=== PATIENT | female | born 1990 | race American Indian/Alaskan Native ===

== ENCOUNTER 2019-10-27 03:54 | Observation (INO) | payer MEDICAID ==
[2019-10-27 04:18] LABS: Hematocrit 43.6 % (30.3-42.9); Hemoglobin 14.2 gm/dl (10.1-14.3); Mean Corpuscular HGB Conc 33 % (30-34); Mean Corpuscular Volume 88 fl (79-97); Platelet Count 308 K/mm3 (140-440); Red Blood Count 4.95 M/mm3 (3.65-5.03); Red Cell Distribution Width 15.8 % (13.2-15.2)
[2019-10-27 04:40] LABS: Alanine Aminotransferase 20 units/L (7-56); Albumin 4.2 g/dL (3.9-5); BUN/Creatinine Ratio 20; Blood Urea Nitrogen 12 mg/dL (7-17); Calcium 9.6 mg/dL (8.4-10.2); Hemolysis Index 47
[2019-10-27] MEDS ORDERED: ONDANSETRON 4 MG/2 ML INJ IV ONE ×2 (05:31→06:40)
[2019-10-27] MEDS ORDERED: FAMOTIDINE 20 MG/2 ML INJ IV ONE (05:31)
[2019-10-27] MEDS ORDERED: SODIUM CHLORIDE 0.9% 1000 ML 1,000 ML IV ONE (05:31)
[2019-10-27] MEDS ORDERED: MORPHINE 4 MG/1 ML INJ IV ONE (05:31)
--- NOTE | 2019-10-27 05:37 | Emergency Department Report ---
ED Abdominal Pain HPI - General Chief Complaint: Abdominal Pain Stated Complaint: ABDOMINAL PAIN Source: patient Mode of arrival: Ambulatory Limitations: No Limitations - History of Present Illness Initial Comments: Patient is a 29-year-old -Finnish female with no past medical history presents to the ED with acute onset persistent severe diffuse abdominal pain with nausea and vomiting for the last 2 days. Patient states that she has not been able to keep anything down in the last 12 hours. Patient describes the pain as crampy sharp and persistent since onset. Patient states that no one else at home has had similar symptoms. Patient denies fever, chills, diarrhea, dizziness, syncope, cough, chest pain, sore throat, dysuria, urinary frequency and urgency, vaginal bleeding, vaginal discharge, chest pain or shortness of breath. MD Complaint: abdominal pain, other (Nausea and vomiting) -: Sudden, days(s) (2) Location: diffuse Radiation: none Migration to: no migration Severity: severe Quality: cramping, sharp Consistency: constant Improves With: nothing Worsens With: nothing Associated Symptoms: denies other symptoms, nausea, vomiting, anorexia. denies: diarrhea, fever, chills, constipation, dysuria, hematemesis, hematochezia, melena, hematuria, syncope - Related Data LMP Date: 10/18/19 Allergies Allergy/AdvReac Type Severity Reaction Status Date / Time shellfish derived Allergy Anaphylaxis Verified 10/27/19 03:56 ED Review of Systems ROS: Stated complaint: ABDOMINAL PAIN Other details as noted in HPI Constitutional: denies: chills, fever Eyes: denies: eye pain, eye discharge, vision change ENT: denies: ear pain, throat pain Respiratory: denies: cough, shortness of breath, wheezing Cardiovascular: denies: chest pain, palpitations Endocrine: no symptoms reported Gastrointestinal: abdominal pain, nausea, vomiting. denies: diarrhea Genitourinary: denies: urgency, dysuria, discharge Musculoskeletal: denies: back pain, joint swelling, arthralgia Skin: denies: rash, lesions Neurological: denies: headache, weakness, paresthesias Psychiatric: denies: anxiety, depression Hematological/Lymphatic: denies: easy bleeding, easy bruising ED Past Medical Hx - Past Medical History Previous Medical History?: No - Surgical History Past Surgical History?: No - Social History Smoking Status: Never Smoker Substance Use Type: None ED Physical Exam - General Limitations: No Limitations General appearance: alert, in no apparent distress - Head Head exam: Present: atraumatic, normocephalic, normal inspection - Eye Eye exam: Present: normal appearance, PERRL, EOMI Pupils: Present: normal accommodation - ENT ENT exam: Present: normal exam, normal orophraynx, mucous membranes moist, TM's normal bilaterally, normal external ear exam - Neck Neck exam: Present: normal inspection, full ROM. Absent: tenderness, lymphadenopathy - Respiratory Respiratory exam: Present: normal lung sounds bilaterally. Absent: respiratory distress, wheezes, rhonchi, chest wall tenderness, accessory muscle use, decreased breath sounds, prolonged expiratory - Cardiovascular Cardiovascular Exam: Present: regular rate, normal rhythm, normal heart sounds. Absent: systolic murmur, diastolic murmur, rubs, gallop - GI/Abdominal GI/Abdominal exam: Present: soft, tenderness (Palpable diffuse abdominal tenderness with guarding), guarding, normal bowel sounds. Absent: rebound, hyperactive bowel sounds, hypoactive bowel sounds, organomegaly - Extremities Exam Extremities exam: Present: normal inspection, full ROM, normal capillary refill - Back Exam Back exam: Present: normal inspection, full ROM. Absent: tenderness, CVA tenderness (R), muscle spasm, paraspinal tenderness, vertebral tenderness - Neurological Exam Neurological exam: Present: alert, oriented X3, CN II-XII intact, normal gait, reflexes normal - Psychiatric Psychiatric exam: Present: normal affect, normal mood - Skin Skin exam: Present: warm, dry, intact, normal color. Absent: rash ED Course Vital Signs 10/27/19 10/27/19 03:56 06:07 Temperature 98.3 F Pulse Rate 77 Respiratory 18 18 Rate Blood Pressure 110/82 O2 Sat by Pulse 99 Oximetry ED Medical Decision Making - Lab Data Result diagrams: 10/27/19 04:07 10/27/19 04:07 - Radiology Data Radiology results: report reviewed, image reviewed Findings [facility] [address] [place] [address] Cat Scan Report Signed Patient: CHERRY OSORIO MR#: [id number] : 1990 Acct:[id number] Age/Sex: 29 / F ADM Date: 10/27/19 Loc: ED Attending Dr: Ordering Physician: NINFA BRADSHAW Date of Service: 10/27/19 Procedure(s): CT abdomen pelvis wo con Accession Number(s): [id number] cc: NINFA BRADSHAW CT ABDOMEN AND PELVIS WITHOUT CONTRAST HISTORY: MAIN: abdominal pain, Pt Sts. x 5 years ago, abd pain x 3 days. COMPARISON: None. TECHNIQUE: CT images of the abdomen and pelvis were obtained without administration of intravenous contrast. All CT scans at this location are performed using CT dose reduction for ALARA by means of automated exposure control. FINDINGS: Lungs/bones: Lung bases are clear. No acute osseous abnormality identified. There is bony sclerosis of the SI joints bilaterally suggesting sacroiliitis with a small amount of erosive martinez e. Abdomen/pelvis: The appendix is abnormally dilated and fluid-filled, retrocecal in location. No free air or abscess to suggest perforation. There is also fatty infiltration within the wall the colon nearly along the entire colon but most prominent in the proximal colon and terminal ileum. The liver, spleen, pancreas, adrenals, kidneys, and proximal GI tract appear unremarkable. Urinary bladder is mostly collapsed. Uterus is surgically absent. No pelvic free fluid. IMPRESSION: 1. Acute uncomplicated appendicitis. 2. Fatty infiltration of the wall the colon and terminal ileum as well as findings of chronic sacroiliitis can be seen with chronic inflammatory bowel disease. Signer Name: Nolberto Reza MD Signed: 10/27/2019 6:18 AM Workstation Name: [id number] Transcribed By: JW Dictated By: Nolberto Reza MD Electronically Authenticated By: Nolberto Reza MD Signed Date/Time: 10/27/19617 DD/ 4 TD/TT: - Medical Decision Making This is a 29-year-old -Finnish female with no past medical history presents to the ED with acute onset persistent severe diffuse abdominal pain with nausea and vomiting for the last 2 days. Patient states that she has not been able to keep anything down in the last 12 hours. Patient describes the pain as crampy sharp and persistent since onset. Patient states that no one else at home has had similar symptoms. In the ED, patient is alert and oriented x3 and is not in distress but appears to be in pain. Lab test results were reviewed and showed acute leukocytosis of 15,300. The rest of the lab test results are nonactionable including urinalysis. Patient was treated for pain and also treated for nausea and vomiting and also given antacids and normal saline 1 L IV bolus x1. Abdomen pelvis CT scan without contrast was performed since the patient is allergic to iodine IV dye. Abdomen pelvis CT scan without contrast shows acute uncomplicated appendicitis. It also shows fatty infiltration of the wall the colon and terminal ileum as well as findings of chronic sacroiliitis which can be seen with chronic inflammatory bowel disease. On reevaluation, patient pain and nausea and vomiting are well controlled at this time with medications. Patient resting comfortably in the bed asleep. I paged the general surgeon on-call Dr. Reeves and discussed the patient's physical exam on lab test results as well as the imaging report. Dr. Reeves advised the patient be admitted to the hospital by the hospitalist physician on- call and he should she shall consult on the patient in the morning. Dr. Reeves also agree with the plan of care to keep the patient n.p.o., start the patient on IV antibiotics, pain medications and IV fluids. I therefore paged and discussed the patient's case with the hospitalist physician on-call Dr. Gandhi who agreed to pass the patient over to the incoming hospitalist physician at shift change at 0700 hrs. - Differential Diagnosis acute appendicitis; Colitis; UTI; Ovarian cyst; GERD; Gastroenteritis Critical care attestation.: If time is entered above; I have spent that time in minutes in the direct care o f this critically ill patient, excluding procedure time. ED Disposition Clinical Impression: Diffuse abdominal pain, Nausea and vomiting in adult, Acute appendicitis, uncomplicated Disposition: OP ADMIT IP TO THIS HOSP Is pt being admited?: Yes Does the pt Need Aspirin: No Condition: Stable Instructions: Abdominal Pain (ED) Referrals: PRIMARY CARE, [Primary Care Provider] - 3-5 Days Time of Disposition: 06:50 Print Language: FRISIAN
[2019-10-27 05:48] LABS: Bacteria,Urine 1+ /HPF (Negative); Bilirubin,Urine NEG (Negative); Blood,Urine NEG (Negative); Color,Urine Amber (Yellow); Mucus,Urine 3+ /HPF
--- NOTE | 2019-10-27 06:22 | Cat Scan Report ---
CT ABDOMEN AND PELVIS WITHOUT CONTRAST HISTORY: MAIN: abdominal pain, Pt Sts. x 5 years ago, abd pain x 3 days. COMPARISON: None. TECHNIQUE: CT images of the abdomen and pelvis were obtained without administration of intravenous co ntrast. All CT scans at this location are performed using CT dose reduction for ALARA by means of au tomated exposure control. FINDINGS: Lungs/bones: Lung bases are clear. No acute osseous abnormality identified. There is bony sclerosis of the SI joints bilaterally suggesting sacroiliitis with a small amount of erosive change. Abdomen/pelvis: The appendix is abnormally dilated and fluid-filled, retrocecal in location. No free air or abscess to suggest perforation. There is also fatty infiltration within the wall the colon ne yenifer along the entire colon but most prominent in the proximal colon and terminal ileum. The liver, spleen, pancreas, adrenals, kidneys, and proximal GI tract appear unremarkable. Urinary bladder is mostly collapsed. Uterus is surgically absent. No pelvic free fluid. IMPRESSION: 1. Acute uncomplicated appendicitis. 2. Fatty infiltration of the wall the colon and terminal ileum as well as findings of chronic sacroil iitis can be seen with chronic inflammatory bowel disease. Signer Name: Nolberto Reza MD Signed: 10/27/2019 6:18 AM Workstation Name: [id number]
[2019-10-27 06:38] LABS: Basophils % (Manual) 0 % (0.0-1.8); Eosinophils % (Manual) 0 % (0.0-4.3); Total Cells Counted 100
[2019-10-27 06:39] LABS: Platelet Estimate Consistent w Auto
[2019-10-27] MEDS ORDERED: PIPERACIL/TAZOBACTA 4.5/NS 100 4.5 GM/100 ML VIAL IV ONE ×2 (06:40→15:13)
[2019-10-27] MEDS ORDERED: LACTATED RINGERS 1,000 ML IV ONE (06:40)
[2019-10-27] MEDS ORDERED: HYDROmorphone 1 MG/1 ML INJ IV ONE (06:41)
[2019-10-27] MEDS ORDERED: metroNIDAZOLE/NS 500 MG/100 ML 500 MG/100 ML BAG IV NR (08:00)
[2019-10-27] MEDS ORDERED: SODIUM CHLORIDE 0.9% 1000 ML 1,000 ML IV SCH (08:15)
--- NOTE | 2019-10-27 08:18 | History and Physical Report ---
History of Present Illness Date of examination: 10/27/19 Date of admission: 10/27/2019 Chief complaint: Abdominal pain nausea vomiting for the last 2 days, worse since last night History of present illness: Very pleasant 29-year-old -Stateless female patient with no significant past medical history presented to the emergency room with abdominal pain associated with nausea vomiting for the last 2 days worse since last night.Patient has been vomiting unable to keep anything down, denies any hematemesis or melena. Never had these symptoms before Denies fever, denies chest pain shortness of breath or cough CT abdomen and pelvis findings consistent with acute appendicitis, blood work, lactic acidosis, leukocytosis Surgery was consulted by ED, Dr. Reeves planning appendectomy Past History Past Medical History: No medical history Past Surgical History: No surgical history Social history: full code. denies: smoking, alcohol abuse Family history: no significant family history Medications and Allergies Allergies Allergy/AdvReac Type Severity Reaction Status Date / Time shellfish derived Allergy Anaphylaxis Verified 10/27/19 03:56 Active Meds: Active Medications Metronidazole (Flagyl 500 Mg/100 Ml) 500 mg in 100 mls @ 200 mls/hr IV PREOP NR; Protocol Stop: 10/27/19 08:29 Review of Systems Constitutional: no weight loss, no weight gain, no fever, no chills Ears, nose, mouth and throat: no nasal congestion, no nasal discharge Cardiovascular: no chest pain, no palpitations, no shortness of breath Respiratory: no cough, no shortness of breath Gastrointestinal: abdominal pain, nausea, vomiting, no diarrhea, no hematemesis, no melena Musculoskeletal: no myalgias, no arthritis Integumentary: no rash, no lesions Neurological: no paralysis, no parathesias, no syncope Psychiatric: no anxiety, no depression Endocrine: no cold intolerance, no heat intolerance Hematologic/Lymphatic: no easy bruising, no easy bleeding Allergic/Immunologic: no urticaria, no allergic rhinitis Exam - Constitutional Vitals: Temp Pulse Resp BP Pulse Ox 98.3 F 77 18 110/82 100 10/27/19 03:56 10/27/19 03:56 10/27/19 06:07 10/27/19 03:56 10/27/19 03:56 General appearance: Present: mild distress, well-nourished, obese - EENT Eyes: Present: PERRL, EOM intact ENT: hearing intact, clear oral mucosa - Neck Neck: Present: supple, normal ROM - Respiratory Respiratory effort: normal Respiratory: bilateral: diminished, negative: rales, rhonchi, wheezing - Cardiovascular Rhythm: regular Heart Sounds: Present: S1 & S2 - Extremities Extremities: no ischemia, No edema - Abdominal General gastrointestinal: Present: soft, non-tender, non-distended, normal bowel sounds - Integumentary Integumentary: Present: clear, warm - Musculoskeletal Musculoskeletal: strength equal bilaterally - Psychiatric Psychiatric: appropriate mood/affect, cooperative - Neurologic Neurologic: no focal deficits, moves all extremities Results - Labs CBC & Chem 7: 10/27/19 04:07 10/27/19 04:07 Labs: Abnormal lab results 10/27/19 10/27/19 10/27/19 Range/Units 04:07 04:07 05:29 WBC 15.3 H (4.5-11.0) K/mm3 Hct 43.6 H (30.3-42.9) % RDW 15.8 H (13.2-15.2) % Seg Neuts % (Manual) 91.0 H (40.0-70.0) % Lymphocytes % (Manual) 6.0 L (13.4-35.0) % Seg Neutrophils # Man 13.9 H (1.8-7.7) K/mm3 Lymphocytes # (Manual) 0.9 L (1.2-5.4) K/mm3 Carbon Dioxide 16 L (22-30) mmol/L Creatinine 0.6 L (0.7-1.2) mg/dL Glucose 137 H (65-100) mg/dL Lactic Acid (0.7-2.0) mmol/L Ur Specific [place] 1.034 H (1.003-1.030) 10/27/19 Range/Units 06:54 WBC (4.5-11.0) K/mm3 Hct (30.3-42.9) % RDW (13.2-15.2) % Seg Neuts % (Manual) (40.0-70.0) % Lymphocytes % (Manual) (13.4-35.0) % Seg Neutrophils # Man (1.8-7.7) K/mm3 Lymphocytes # (Manual) (1.2-5.4) K/mm3 Carbon Dioxide (22-30) mmol/L Creatinine (0.7-1.2) mg/dL Glucose (65-100) mg/dL Lactic Acid 2.10 H* (0.7-2.0) mmol/L Ur Specific [place] (1.003-1.030) Assessment and Plan - Patient Problems (1) Acute appendicitis, uncomplicated Current Visit: Yes Status: Acute Plan to address problem: N.p.o. status IV fluids normal saline IV pain medications IV antibiotics with Zosyn Surgery already consulted Supportive care (2) Diffuse abdominal pain Current Visit: Yes Status: Acute Plan to address problem: Due to appendicitis Pain managementm, supportive care (3) Lactic acidosis Current Visit: Yes Status: Acute Plan to address problem: Probably secondary to underlying disease process appendicitis Closely monitor, IV fluids treat the underlying cause (4) Leukocytosis Current Visit: Yes Status: Acute Plan to address problem: Secondary to acute appendicitis (5) DVT prophylaxis Current Visit: Yes Status: Acute Plan to address problem: SCDs, no pharmacologic anticoagulation due to pending per surgical procedure
--- NOTE | 2019-10-27 08:39 | Consultation ---
History of Present Illness Consult date: 10/27/19 Reason for consult: abdominal pain - History of present illness History of present illness: 29 year old female who presented to ED with 2 day hx of abdominal pain, bilateral lower quadrants. She says she has had a similar pain before but not as bad. She was seen at [facility] and given a GI cocktail with improvement. She also complains of intractable nausea and vomiting for the past 12 hours. She had a CT scan that showed acute appendicitis. Past History Past Medical History: No medical history Past Surgical History: Social history: full code. denies: smoking, alcohol abuse Family history: no significant family history Medications and Allergies Allergies Allergy/AdvReac Type Severity Reaction Status Date / Time shellfish derived Allergy Anaphylaxis Verified 10/27/19 03:56 Review of Systems - Constitutional poor appetite - Cardiovascular no chest pain - Respiratory cough - Gastrointestinal abdominal pain, nausea, vomiting Exam Vital Signs Temp Pulse Resp BP Pulse Ox 98.3 F 77 18 110/82 99 10/27/19 03:56 10/27/19 03:56 10/27/19 03:56 10/27/19 03:56 10/27/19 03:56 - General physical appearance Positive: well developed, moderate distress, moderate pain - Respiratory Positive: normal expansion, normal respiratory effort - Extremities Extremities: no ischemia - Abdomen Abdomen: Present: soft, rigid (tender to palation in bilateral lower quadrants), other. Absent: guarding - Neurologic Neurologic: alert and oriented to time, place and person Results - Labs 10/27/19 04:07 10/27/19 04:07 Abnormal lab results 10/27/19 10/27/19 10/27/19 Range/Units 04:07 04:07 05:29 WBC 15.3 H (4.5-11.0) K/mm3 Hct 43.6 H (30.3-42.9) % RDW 15.8 H (13.2-15.2) % Seg Neuts % (Manual) 91.0 H (40.0-70.0) % Lymphocytes % (Manual) 6.0 L (13.4-35.0) % Seg Neutrophils # Man 13.9 H (1.8-7.7) K/mm3 Lymphocytes # (Manual) 0.9 L (1.2-5.4) K/mm3 Carbon Dioxide 16 L (22-30) mmol/L Creatinine 0.6 L (0.7-1.2) mg/dL Glucose 137 H (65-100) mg/dL Lactic Acid (0.7-2.0) mmol/L Ur Specific [place] 1.034 H (1.003-1.030) 10/27/19 Range/Units 06:54 WBC (4.5-11.0) K/mm3 Hct (30.3-42.9) % RDW (13.2-15.2) % Seg Neuts % (Manual) (40.0-70.0) % Lymphocytes % (Manual) (13.4-35.0) % Seg Neutrophils # Man (1.8-7.7) K/mm3 Lymphocytes # (Manual) (1.2-5.4) K/mm3 Carbon Dioxide (22-30) mmol/L Creatinine (0.7-1.2) mg/dL Glucose (65-100) mg/dL Lactic Acid 2.10 H* (0.7-2.0) mmol/L Ur Specific [place] (1.003-1.030) Diabetes panel 10/27/19 Range/Units 04:07 Sodium 138 (137-145) mmol/L Potassium 4.1 (3.6-5.0) mmol/L Chloride 105.3 (98-107) mmol/L Carbon Dioxide 16 L (22-30) mmol/L BUN 12 (7-17) mg/dL Creatinine 0.6 L (0.7-1.2) mg/dL Glucose 137 H (65-100) mg/dL Calcium 9.6 (8.4-10.2) mg/dL AST 19 (5-40) units/L ALT 20 (7-56) units/L Alkaline Phosphatase 83 (35-129) units/L Total Protein 7.9 (6.3-8.2) g/dL Albumin 4.2 (3.9-5) g/dL Calcium panel 10/27/19 Range/Units 04:07 Calcium 9.6 (8.4-10.2) mg/dL Albumin 4.2 (3.9-5) g/dL Pituitary panel 10/27/19 Range/Units 04:07 Sodium 138 (137-145) mmol/L Potassium 4.1 (3.6-5.0) mmol/L Chloride 105.3 (98-107) mmol/L Carbon Dioxide 16 L (22-30) mmol/L BUN 12 (7-17) mg/dL Creatinine 0.6 L (0.7-1.2) mg/dL Glucose 137 H (65-100) mg/dL Calcium 9.6 (8.4-10.2) mg/dL Adrenal panel 10/27/19 Range/Units 04:07 Sodium 138 (137-145) mmol/L Potassium 4.1 (3.6-5.0) mmol/L Chloride 105.3 (98-107) mmol/L Carbon Dioxide 16 L (22-30) mmol/L BUN 12 (7-17) mg/dL Creatinine 0.6 L (0.7-1.2) mg/dL Glucose 137 H (65-100) mg/dL Calcium 9.6 (8.4-10.2) mg/dL Total Bilirubin 0.70 (0.1-1.2) mg/dL AST 19 (5-40) units/L ALT 20 (7-56) units/L Alkaline Phosphatase 83 (35-129) units/L Total Protein 7.9 (6.3-8.2) g/dL Albumin 4.2 (3.9-5) g/dL - Imaging CT scan - abdomen: report reviewed, image reviewed CT scan - pelvis: report reviewed, image reviewed Assessment and Plan 29 year old female with acute appendicitis. afebrile and stable. will take for lap appy today. continue abx
[2019-10-27] MEDS: MORPHINE 2 MG/1 ML INJ IV PRN ×2 (09:51→16:24)
[2019-10-27] MEDS: PANTOPRAZOLE 40 MG INJ IV SCH (10:30)
[2019-10-27] MEDS ORDERED: HYDROmorphone 1 MG/1 ML INJ IV PRN (11:42)
[2019-10-27] MEDS ORDERED: ONDANSETRON 4 MG/2 ML INJ IV PRN (11:42)
[2019-10-27] MEDS ORDERED: MEPERIDINE 25 MG/1 ML INJ IV PRN (11:42)
--- NOTE | 2019-10-27 11:42 | Anesthesia Day of Surgery ---
Anesthesia Day of Surgery - Day of Surgery Patient Examined: Yes Patient H&P Reviewed: Yes Patient is NPO: Yes
--- NOTE | 2019-10-27 11:42 | Anesthesia Consultation ---
Anesthesia Consult and Med Hx Date of service: 10/27/19 - Airway Anesthetic Teeth Evaluation: Poor ROM Head & Neck: Adequate Mental/Hyoid Distance: Adequate Mallampati Class: Class II Intubation Access Assessment: Probably Good - Pulmonary Exam CTA: Yes - Pre-Operative Health Status ASA Pre-Surgery Classification: ASA1 Proposed Anesthetic Plan: General (Chart and labs reviewed, )
[2019-10-27] MEDS ORDERED: PIPERACILLIN/TAZOBACTAM 3.375 3.375 GM/50 ML BAG IV SCH (14:00)
[2019-10-27] MEDS: PIPERACIL/TAZOBACTA 4.5/NS 100 4.5 GM/100 ML VIAL IV SCH ×2 (15:22→21:39)
[2019-10-27] MEDS ORDERED: MORPHINE 2 MG/1 ML INJ ONE (16:18)
[2019-10-27] MEDS ORDERED: ONDANSETRON 4 MG/2 ML INJ ONE ×2 (16:18→17:57)
[2019-10-27] MEDS: ONDANSETRON 4 MG/2 ML INJ IV PRN (16:23)
[2019-10-27] MEDS ORDERED: ROCURONIUM 50 MG/5 ML INJ IV ONE (16:53)
[2019-10-27] MEDS ORDERED: propofoL 200 MG/20 ML VIAL IV ONE (16:53)
[2019-10-27] MEDS ORDERED: SUCCINYLCHOLINE CHLORIDE 200 MG/10 ML INJ MDV ONE (16:53)
[2019-10-27] MEDS ORDERED: HYDROmorphone 1 MG/1 ML INJ ONE (16:53)
[2019-10-27] MEDS ORDERED: LIDOCAINE MPF (2%) 20 MG/1 ML VIAL 5 ML ONE (16:53)
[2019-10-27] MEDS ORDERED: BUPIVACAINE/PF (0.5%) 5 MG/1 ML 30 ML VIAL INFILTRATI ONE ×2 (17:02→17:49)
[2019-10-27] MEDS ORDERED: LIDOCAINE (1%) 10 MG/1 ML VIAL 20 ML MDV ONE (17:02)
[2019-10-27] MEDS ORDERED: LIDOCAINE (1%) 10 MG/1 ML VIAL 20 ML MDV INFILTRATI ONE (17:49)
[2019-10-27] MEDS ORDERED: SODIUM CHLORIDE 0.9% IRR 1,500 ML BOTTLE IR ONE (17:50)
[2019-10-27] MEDS ORDERED: NEOSTIGMINE 10MG/10 ML INJ MDV ONE (17:56)
[2019-10-27] MEDS ORDERED: GLYCOPYRROLATE 0.4 MG/2 ML INJ ONE (17:56)
[2019-10-27] MEDS ORDERED: KETOROLAC 30 MG/1 ML INJ ONE ×2 (17:57→18:01)
--- NOTE | 2019-10-27 18:27 | Post Anesthesia Evaluation ---
- Post Anesthesia Evaluation Patient Participated: Yes Airway Patent: Yes Stable Respiratory Function: Yes Nausea/Vomiting: No Temp > 96.8F: Yes Pain Manageable: Yes Adequeate Hydration: Yes Anesthesia Complications: No
[2019-10-27] MEDS ORDERED: SODIUM CHLORIDE 0.9% 1000 ML 1,000 ML ONE (18:30)
--- NOTE | 2019-10-27 18:31 | Operative Report ---
Operative Report Operative Report: Date: October 27, 2019 Surgeon: Aneta Reeves MD Preop diagnosis: Acute appendicitis Postop diagnosis: Same as preop Procedure: Laparoscopic appendectomy Anesthesia: General endotracheal tube intubation Findings: Nonperforated acute appendicitis no signs of abscess EBL: Minimal Specimen: Appendix Complications: None immediate Indication: Patient is a 29-year-old female who was admitted to the emergency room with a 2-day history of lower abdominal pain. She had a CT scan that showed acute appendicitis. She was consented for laparoscopic appendectomy. Details of procedure: Patient was brought in the OR suite and laid in supine position. Bilateral lower extremity SCDs were placed. General anesthesia was induced via successful endotracheal tube intubation. A Holland catheter was inserted under sterile technique. Patient's abdomen was prepped and draped in sterile fashion with the left arm tucked at her side. After timeout was performed a Veress needle was used via a stab incision in the left subcostal region to insufflate the abdomen to a pressure of 15 mmHg. Using Optiview technique a 5 mm trocar was placed just superior to the umbilicus. There was no gross injury to any intra-abdominal structures. 2 working trochars were placed under direct visualization. A 5 mm in the suprapubic area, and a 12 mm in the left midabdomen. Prior to the 12 mm trocar being inserted using a suture passer device and 0 Vicryl was placed trans-fascially to be able to close this trocar site at the end of the case. The appendix was identified and localized retrocecal it was mobilized medially. The mesoappendix was transected with a LigaSure device. The appendix was transected at its base with a white load of an endoscopic stapler. The staple line was inspected and found to be secure and hemostasis was adequate. The appendix was placed in Endo Catch bag and retrieved via the 12 mm trocar site. Under COVID guidelines the abdomen was desufflated using the smoke evacuator machine. After the abdomen was desufflated the trochars were removed. The appendix was sent off as specimen and the 0 Vicryl was then approximated and tied to close the fascial defect at that site. Local anesthesia using 50-50 lidocaine Marcaine was used at all trocar sites. Skin incisions were closed with 4-0 Monocryl followed by Dermabond. Patient was awoken extubated and taken to recovery stable condition. All counts were correct.
[2019-10-27] MEDS: oxyCODONE /ACETAMINOPHEN 5-325MG TAB PO PRN (21:38)
[2019-10-28 04:43] LABS: Basophils # (Auto) 0.1 K/mm3 (0.0-0.1); Basophils % (Auto) 0.6 % (0.0-1.8); Eosinophils % (Auto) 0.2 % (0.0-4.3); Hematocrit 36.4 % (30.3-42.9); Hemoglobin 12.1 gm/dl (10.1-14.3); Lymphocytes # (Auto) 1.4 K/mm3 (1.2-5.4); Lymphocytes % (Auto) 12.7 % (13.4-35.0); Mean Corpuscular HGB Conc 33 % (30-34); Mean Corpuscular Volume 89 fl (79-97); Monocytes # (Auto) 0.4 K/mm3 (0.0-0.8); Monocytes % (Auto) 3.8 % (0.0-7.3); Platelet Count 231 K/mm3 (140-440); Red Blood Count 4.11 M/mm3 (3.65-5.03); Red Cell Distribution Width 15.6 % (13.2-15.2)
[2019-10-28 04:59] LABS: BUN/Creatinine Ratio 7; Blood Urea Nitrogen 5 mg/dL (7-17); Calcium 8.2 mg/dL (8.4-10.2); Hemolysis Index 11
[2019-10-28] MEDS: oxyCODONE /ACETAMINOPHEN 5-325MG TAB PO PRN ×3 (05:02→16:40)
[2019-10-28] MEDS: PIPERACIL/TAZOBACTA 4.5/NS 100 4.5 GM/100 ML VIAL IV SCH (10:03)
[2019-10-28] MEDS: ONDANSETRON 4 MG/2 ML INJ IV PRN (10:15)
[2019-10-28] MEDS: PANTOPRAZOLE 40 MG INJ IV SCH (10:24)
--- NOTE | 2019-10-28 14:51 | Progress Note ---
Assessment and Plan POD#1 s/p lap appy for acute appendicitis. Afebrile and stable recovering well. Pt may shower, and advance diet as tolerated. Pt to call and make an appointment to follow up in the office with me for follow up in two weeks. [phone] Subjective Date of service: 10/28/19 Patient Reports: Positive: feels better, pain is less, tolerating a regular diet (no acute events overnight. Pt says that the pain she was having pre-op has improved and she has some post surgical discomfort on her left side.) Objective Vital Signs - 12hr 10/28/19 10/28/19 10/28/19 04:44 07:52 12:08 Temperature 98.3 F 98.7 F 98.7 F Pulse Rate 70 77 Respiratory 16 20 20 Rate Blood Pressure 127/78 105/71 126/76 O2 Sat by Pulse 100 92 Oximetry - General physical appearance well developed, no distress, no pain - Respiratory normal expansion, normal respiratory effort - Abdomen soft, other (incisions c/d/i, appropriatley tender to palpation) - Labs 10/28/19 04:16 10/28/19 04:16 Diabetes panel 10/28/19 Range/Units 04:16 Sodium 136 L (137-145) mmol/L Potassium 3.5 L (3.6-5.0) mmol/L Chloride 104.7 (98-107) mmol/L Carbon Dioxide 21 L (22-30) mmol/L BUN 5 L (7-17) mg/dL Creatinine 0.7 (0.7-1.2) mg/dL Glucose 95 (65-100) mg/dL Calcium 8.2 L (8.4-10.2) mg/dL Calcium panel 10/28/19 Range/Units 04:16 Calcium 8.2 L (8.4-10.2) mg/dL Pituitary panel 10/28/19 Range/Units 04:16 Sodium 136 L (137-145) mmol/L Potassium 3.5 L (3.6-5.0) mmol/L Chloride 104.7 (98-107) mmol/L Carbon Dioxide 21 L (22-30) mmol/L BUN 5 L (7-17) mg/dL Creatinine 0.7 (0.7-1.2) mg/dL Glucose 95 (65-100) mg/dL Calcium 8.2 L (8.4-10.2) mg/dL Adrenal panel 10/28/19 Range/Units 04:16 Sodium 136 L (137-145) mmol/L Potassium 3.5 L (3.6-5.0) mmol/L Chloride 104.7 (98-107) mmol/L Carbon Dioxide 21 L (22-30) mmol/L BUN 5 L (7-17) mg/dL Creatinine 0.7 (0.7-1.2) mg/dL Glucose 95 (65-100) mg/dL Calcium 8.2 L (8.4-10.2) mg/dL
--- NOTE | 2019-10-28 15:07 | Discharge Summary ---
Providers - Providers Date of Admission: 10/27/19 08:03 Date of discharge: 10/28/19 Attending physician: LANNY VILLALOBOS 10/27/19 06:48 Consult to Physician [CONS] Stat Comment: Consulting Provider: RICA TUCKER Physician Instructions: Keep NPO; Admit to hospitalist; IV Abx, IV fluids Reason For Exam: acute appendicitis; abdominal pain Primary care physician: CONCHE OPERATOR Hospitalization Condition: Stable - Discharge Diagnoses (1) Acute appendicitis, uncomplicated Status: Acute (2) Diffuse abdominal pain Status: Acute (3) Lactic acidosis Status: Acute (4) Leukocytosis Status: Acute (5) DVT prophylaxis Status: Acute Core Measure Documentation - Palliative Care Palliative Care/ Comfort Measures: Not Applicable - Core Measures Any of the following diagnoses?: none Exam - Constitutional Vitals: Temp Pulse Resp BP Pulse Ox 98.7 F 77 20 126/76 92 10/28/19 12:08 10/28/19 12:08 10/28/19 12:08 10/28/19 12:08 10/28/19 12:08 Plan Activity: no restrictions Diet: other (Soft diet advance as tolerated) Additional Instructions: Postop instructions as recommended by surgery. If you have worsening symptoms contact MD or go to emergency room Follow up with: PRIMARY CARE, [Primary Care Provider] - 3-5 Days RICA TUCKER MD [Staff Physician] - 7 Days Prescriptions: oxyCODONE /ACETAMINOPHEN [Percocet 5/325] 2 tab PO Q6HR PRN #20 tablet PRN Reason: Pain
[2019-10-29 12:24] VITALS: BP 128/93
== END 2019-10-28 18:23 | disposition home or self-care (01) ==
LOC: ED 03:54 → INTOOBSV 08:03 → 4A 08:03
PROVIDERS: ADMIT Internal Medicine; ATTEND Internal Medicine
DX: K35.80 Unspecified acute appendicitis (principal); R11.2 Nausea with vomiting, unspecified; E87.2 Acidosis; D72.829 Elevated white blood cell count, unspecified; Z91.013 Allergy to seafood
CPT/HCPCS: 36415; 44970; 74176; 80048; 80053; 81001; 82140; 83690; 84703; 85007; 85025; 87040; 88304; 96361; 96365; 96366; 96367; 96375; 96376; 99285; C9113; G0378; J0330; J1170; J1885; J2270; J2405; J2543; J2704; J2710; J7030; J7120

== ENCOUNTER 2019-12-16 08:08 | Emergency (ER) | payer MEDICAID ==
[2019-12-16 08:21] VITALS: BP 140/89
--- NOTE | 2019-12-16 08:47 | Emergency Department Report ---
ED Female HPI - General Chief complaint: Vaginal Bleeding Stated complaint: BLEEDING Time Seen by Provider: 12/16/19 08:27 Source: patient Mode of arrival: Ambulatory Limitations: No Limitations - History of Present Illness Initial comments: This is a 29-year-old female nontoxic, well nourished in appearance, no acute signs of distress presents to the ED with c/o of intermittent vaginal bleeding x2 months. Patient stated that symptoms started after getting an contraceptive implant to left arm. Stated symptoms worsened since appendectomy but stated symtpoms started prior to appendectomy. Patient stated she follow-up with her surgeon Dr. Reeves and was told that this is normal post surgery. Patient denies any abdominal or pelvic pain. Patient denies any vaginal discharge or foul odor. Patient denies any nausea, vomiting, chest pain, shortness of breathe, fever, chills, headache, stiff neck, numbness, tingling. Patient denies any urinary symptoms. Patient denies any allergies or PMH. MD Complaint: vaginal bleeding -: month(s) Severity scale (0 -10): 0 Improves with: none Worsens with: none Are you Now?: No Associated Symptoms: vaginal bleeding. denies: vaginal discharge, abdominal pain, nausea/vomiting, fever/chills, headaches, loss of appetite, dysuria, hematuria, rash, seizure, shortness of breath, syncope, weakness - Related Data Previous Rx's Medication Instructions Recorded Last Taken Type oxyCODONE /ACETAMINOPHEN [Percocet 2 tab PO Q6HR PRN #20 tablet 10/28/19 Unknown Rx /325] Allergies Allergy/AdvReac Type Severity Reaction Status Date / Time shellfish derived Allergy Anaphylaxis Verified 10/27/19 03:56 ED Review of Systems ROS: Stated complaint: BLEEDING Other details as noted in HPI Constitutional: denies: chills, fever Eyes: denies: eye pain, eye discharge, vision change ENT: denies: ear pain, throat pain Respiratory: denies: cough, shortness of breath, wheezing Cardiovascular: denies: chest pain, palpitations Endocrine: no symptoms reported Gastrointestinal: denies: abdominal pain, nausea, vomiting, diarrhea Genitourinary: abnormal menses. denies: urgency, dysuria, discharge Musculoskeletal: denies: back pain, joint swelling, arthralgia Skin: denies: rash, lesions Neurological: denies: headache, weakness, paresthesias Psychiatric: denies: anxiety, depression Hematological/Lymphatic: denies: easy bleeding, easy bruising ED Past Medical Hx - Past Medical History Previous Medical History?: No - Surgical History Past Surgical History?: Yes Hx Appendectomy: Yes Additional Surgical History: C section - Social History Smoking Status: Never Smoker Substance Use Type: None - Medications Home Medications: Home Medications Medication Instructions Recorded Confirmed Last Taken Type oxyCODONE /ACETAMINOPHEN [Percocet 2 tab PO Q6HR PRN #20 tablet 10/28/19 Unknown Rx 325] ED Physical Exam - General Limitations: No Limitations General appearance: alert, in no apparent distress - Head Head exam: Present: atraumatic, normocephalic - Eye Eye exam: Present: normal appearance - Neck Neck exam: Present: normal inspection, full ROM. Absent: tenderness, meningismus, lymphadenopathy - Respiratory Respiratory exam: Present: normal lung sounds bilaterally. Absent: respiratory distress, wheezes, rales, rhonchi, chest wall tenderness, accessory muscle use, decreased breath sounds, prolonged expiratory - Cardiovascular Cardiovascular Exam: Present: regular rate, normal rhythm, normal heart sounds. Absent: bradycardia, tachycardia, irregular rhythm, systolic murmur, diastolic murmur, rubs, gallop - GI/Abdominal GI/Abdominal exam: Present: soft, normal bowel sounds. Absent: distended, tenderness, guarding, rebound, rigid, diminished bowel sounds - External exam: Present: normal external exam, other (Commercial Analyst Tacho RN present during exam). Absent: erythema, swelling, lesions, lacerations, ecchymosis, b leeding Speculum exam: Present: vaginal bleeding, other (Commercial Analyst Tacho RN present during exam). Absent: erythema, vaginal discharge, cervical discharge, foreign body, tissue, laceration Bi-manual exam: Present: normal bi-manual exam, other (Commercial Analyst Tacho RN present during exam). Absent: cervical motion tendernes, adnexal tenderness, adnexal mass, uterine enlargement, uterine tenderness - Extremities Exam Extremities exam: Present: normal inspection, full ROM - Back Exam Back exam: Present: normal inspection, full ROM. Absent: tenderness, CVA tenderness (R), CVA tenderness (L), muscle spasm, paraspinal tenderness, vertebral tenderness, rash noted - Neurological Exam Neurological exam: Present: alert, oriented X3, normal gait - Psychiatric Psychiatric exam: Present: normal affect, normal mood - Skin Skin exam: Present: warm, dry, intact, normal color. Absent: rash ED Course Vital Signs 12/16/19 08:20 Temperature 98.4 F Pulse Rate 63 Respiratory 16 Rate Blood Pressure 140/89 [Right] O2 Sat by Pulse 100 Oximetry - Reevaluation(s) Reevaluation #1: 12/16/19 08:47 Patient is speaking in full sentences with no signs of distress noted. ED Medical Decision Making - Lab Data Result diagrams: 12/16/19 08:47 12/16/19 08:47 Lab Results 12/16/19 12/16/19 12/16/19 Range/Units 08:47 08:47 09:32 WBC 5.1 (4.5-11.0) K/mm3 RBC 4.20 (3.65-5.03) M/mm3 Hgb 13.1 (10.1-14.3) gm/dl Hct 38.9 (30.3-42.9) % MCV 93 (79-97) fl MCH 31 (28-32) pg MCHC 34 (30-34) % RDW 15.9 H (13.2-15.2) % Plt Count 221 (140-440) K/mm3 Lymph % (Auto) 33.6 (13.4-35.0) % Hardin % (Auto) 6.5 (0.0-7.3) % Eos % (Auto) 5.4 H (0.0-4.3) % Baso % (Auto) 1.0 (0.0-1.8) % Lymph # 1.7 (1.2-5.4) K/mm3 Hardin # 0.3 (0.0-0.8) K/mm3 Eos # 0.3 (0.0-0.4) K/mm3 Baso # 0.0 (0.0-0.1) K/mm3 Seg Neutrophils % 53.5 (40.0-70.0) % Seg Neutrophils # 2.7 (1.8-7.7) K/mm3 Sodium 140 (137-145) mmol/L Potassium 4.1 (3.6-5.0) mmol/L Chloride 107.9 H (98-107) mmol/L Carbon Dioxide 24 (22-30) mmol/L Anion Gap 12 mmol/L BUN 11 (7-17) mg/dL Creatinine 0.7 (0.7-1.2) mg/dL Estimated GFR > 60 ml/min BUN/Creatinine Ratio 16 % Glucose 111 H (65-100) mg/dL Calcium 9.4 (8.4-10.2) mg/dL Total Bilirubin 0.20 (0.1-1.2) mg/dL AST 13 (5-40) units/L ALT 13 (7-56) units/L Alkaline Phosphatase 84 (35-129) units/L Total Protein 6.3 (6.3-8.2) g/dL Albumin 3.9 (3.9-5) g/dL Albumin/Globulin Ratio 1.6 % Urine Color Yellow (Yellow) Urine Turbidity Clear (Clear) Urine pH 6.0 (5.0-7.0) Ur Specific Orange 1.021 (1.003-1.030) Urine Protein <15 mg/dl (Negative) mg/dL Urine Glucose (UA) Neg (Negative) mg/dL Urine Ketones Neg (Negative) mg/dL Urine Blood Lg (Negative) Urine Nitrite Neg (Negative) Urine Bilirubin Neg (Negative) Urine Urobilinogen < 2.0 (<2.0) mg/dL Ur Leukocyte Esterase Neg (Negative) Urine WBC (Auto) 1.0 (0.0-6.0) /HPF Urine RBC (Auto) 19.0 (0.0-6.0) /HPF U Epithel Cells (Auto) 1.0 (0-13.0) /HPF Urine Mucus Few /HPF Urine HCG, Qual Negative (Negative) - Medical Decision Making This is a 31-year-old female that presents with abnormal menstrual cycle. Patient is stable and was examined by me. Patient was instructed to follow-up with a OBGYN doctor in 3-5 days or if symptoms worsen and continue return to emergency room as soon as possible. At time of discharge, the patient does not seem toxic or ill in appearance. No acute signs of distress noted. Patient a grees to discharge treatment plan of care. No further questions noted by the patient. Critical care attestation.: If time is entered above; I have spent that time in minutes in the direct care of this critically ill patient, excluding procedure time. ED Disposition Clinical Impression: Abnormal menstrual cycle Disposition: DC- TO HOME OR SELFCARE Is pt being admited?: No Does the pt Need Aspirin: No Condition: Stable Additional Instructions: Follow-up with a OBGYN doctor in 3-5 days or if symptoms worsen and continue return to emergency room as soon as possible. Referrals: PRIMARY CARE, [Referring] - 3-5 Days RANDEE HAMPTON MD [Staff Physician] - 3-5 Days [facility] [Provider Group] - 3-5 Days Forms: Work/School Release Form(ED)
[2019-12-16 09:03] LABS: Eosinophils # (Auto) 0.3 K/mm3 (0.0-0.4); Eosinophils % (Auto) 5.4 % (0.0-4.3); Hematocrit 38.9 % (30.3-42.9); Hemoglobin 13.1 gm/dl (10.1-14.3); Lymphocytes # (Auto) 1.7 K/mm3 (1.2-5.4); Lymphocytes % (Auto) 33.6 % (13.4-35.0); Mean Corpuscular HGB Conc 34 % (30-34); Mean Corpuscular Volume 93 fl (79-97); Monocytes # (Auto) 0.3 K/mm3 (0.0-0.8); Monocytes % (Auto) 6.5 % (0.0-7.3); Platelet Count 221 K/mm3 (140-440); Red Cell Distribution Width 15.9 % (13.2-15.2)
[2019-12-16 10:00] LABS: Bilirubin,Urine NEG (Negative); Blood,Urine LG (Negative); Color,Urine Yellow (Yellow); Mucus,Urine FEW /HPF; Protein,Urine <15 mg/dL mg/dL (Negative); Urobilinogen,Urine < 2.0 mg/dL (<2.0)
[2019-12-16 10:02] LABS: HCG Qualitative,Urine Negative (Negative)
[2019-12-16 10:11] LABS: BUN/Creatinine Ratio 16; Blood Urea Nitrogen 11 mg/dL (7-17); Calcium 9.4 mg/dL (8.4-10.2)
[2019-12-16 10:12] LABS: Alanine Aminotransferase 13 units/L (7-56); Albumin 3.9 g/dL (3.9-5)
== END 2019-12-16 10:18 | disposition home or self-care (01) ==
LOC: ED 08:08
DX: N92.6 Irregular menstruation, unspecified (principal); Z90.49 Acquired absence of other specified parts of digestive tract; Z98.890 Other specified postprocedural states; Z79.899 Other long term (current) drug therapy; Z91.013 Allergy to seafood
CPT/HCPCS: 36415; 80053; 81001; 81025; 85025

== ENCOUNTER 2020-04-17 22:51 | Emergency (ER) | payer MEDICAID ==
[2020-04-18 00:27] LABS: Bacteria,Urine 1+ /HPF (Negative); Bilirubin,Urine NEG (Negative); Blood,Urine NEG (Negative); Color,Urine Yellow (Yellow); Mucus,Urine 3+ /HPF
[2020-04-18 00:49] LABS: Basophils # (Auto) 0.1 K/mm3 (0.0-0.1); Basophils % (Auto) 1.2 % (0.0-1.8); Eosinophils # (Auto) 0.1 K/mm3 (0.0-0.4); Eosinophils % (Auto) 1.1 % (0.0-4.3); Hematocrit 38.9 % (30.3-42.9); Hemoglobin 13.1 gm/dl (10.1-14.3); Lymphocytes # (Auto) 1.8 K/mm3 (1.2-5.4); Lymphocytes % (Auto) 25.1 % (13.4-35.0); Mean Corpuscular HGB Conc 34 % (30-34); Mean Corpuscular Volume 91 fl (79-97); Monocytes # (Auto) 0.4 K/mm3 (0.0-0.8); Monocytes % (Auto) 5.1 % (0.0-7.3); Platelet Count 290 K/mm3 (140-440); Red Blood Count 4.27 M/mm3 (3.65-5.03); Red Cell Distribution Width 13.8 % (13.2-15.2)
[2020-04-18] MEDS ORDERED: SODIUM CHLORIDE 0.9% 1000 ML 1,000 ML IV ONE (01:02)
[2020-04-18] MEDS ORDERED: ONDANSETRON 4 MG/2 ML INJ IV STA (01:02)
[2020-04-18] MEDS ORDERED: MORPHINE 4 MG/1 ML INJ IV STA (01:02)
[2020-04-18 01:06] LABS: Alanine Aminotransferase 9 units/L (7-56); Albumin 3.9 g/dL (3.9-5); Blood Urea Nitrogen 11 mg/dL (7-17); Calcium 9.1 mg/dL (8.4-10.2); Hemolysis Index 5
[2020-04-18 01:10] LABS: BUN/Creatinine Ratio 16
[2020-04-18] MEDS ORDERED: SODIUM CHLORIDE 0.9% 1000 ML 1,000 ML ONE (04:27)
[2020-04-18] MEDS ORDERED: ONDANSETRON 4 MG/2 ML INJ ONE (04:27)
[2020-04-18] MEDS ORDERED: MORPHINE 4 MG/1 ML INJ ONE (04:27)
--- NOTE | 2020-04-18 04:32 | Cat Scan Report ---
CT ABDOMEN AND PELVIS WITHOUT CONTRAST INDICATION / CLINICAL INFORMATION: Lower ABD Pain/post-surgical. TECHNIQUE: Axial CT images were obtained through the abdomen and pelvis without IV contrast. All CT scans at [facility] location are performed using CT dose reduction for ALARA by means of automated exposure control. COMPARISON: 10/27/2019 FINDINGS: LOWER CHEST: No significant abnormality. LIVER: No significant abnormality. GALLBLADDER: Cholelithiasis. BILE DUCTS: No significant abnormality. PANCREAS: No significant abnormality. SPLEEN: No significant abnormality. ADRENALS: No significant abnormality. RIGHT KIDNEY and URETER: No significant abnormality. LEFT KIDNEY and URETER: No significant abnormality. STOMACH and SMALL BOWEL: No significant abnormality. COLON: No significant abnormality. APPENDIX: Prior appendectomy.. PERITONEUM: No free fluid. No free air. No fluid collection. LYMPH NODES: No significant adenopathy. AORTA and ARTERIES: No significant abnormality. IVC and VEINS: No significant abnormality. URINARY BLADDER: No significant abnormality. REPRODUCTIVE ORGANS: No significant abnormality. ADDITIONAL FINDINGS: None. SKELETAL SYSTEM: No significant abnormality. IMPRESSION: 1. No significant abnormality. Signer Name: Celestine Salvador MD Signed: 04/18/2020 4:27 AM Workstation Name: [id number]
--- NOTE | 2020-04-18 05:35 | Emergency Department Report ---
ED Abdominal Pain HPI - General Chief Complaint: Abdominal Pain Stated Complaint: ABD PAINS Time Seen by Provider: 04/18/20 01:02 Source: patient Mode of arrival: Ambulatory Limitations: No Limitations - History of Present Illness Initial Comments: 29-year-old [place] female status post appendectomy 1 month ago presents emerged department complaining of severe lower abdominal pain associated with nausea rated it radiates across the lower stomach but not associated with any hematuria or dysuria no flank pain no fevers, chills, sweats reports no chest pain or palpitations no trauma no constipation or diarrhea -: days(s) (3) Radiation: LLQ, RLQ Migration to: LLQ, RLQ Severity: moderate, severe Severity scale (0 -10): 9 Quality: stabbing, aching Consistency: constant Improves With: nothing Worsens With: nothing Associated Symptoms: denies: chills, constipation, dysuria, hematemesis, melena, anorexia, syncope - Related Data Previous Rx's Medication Instructions Recorded Last Taken Type oxyCODONE /ACETAMINOPHEN [Percocet 2 tab PO Q6HR PRN #20 tablet 10/28/19 Unknown Rx 5/325] Allergies Allergy/AdvReac Type Severity Reaction Status Date / Time shellfish derived Allergy Anaphylaxis Verified 10/27/19 03:56 ED Review of Systems ROS: Stated complaint: ABD PAINS Other details as noted in HPI Comment: All other systems reviewed and negative ED Past Medical Hx - Past Medical History Previous Medical History?: Yes Hx Asthma: Yes Additional medical history: MS - Surgical History Past Surgical History?: Yes Hx Appendectomy: Yes Additional Surgical History: C section - Social History Smoking Status: Never Smoker Substance Use Type: None - Medications Home Medications: Home Medications Medication Instructions Recorded Confirmed Last Taken Type oxyCODONE /ACETAMINOPHEN [Percocet 2 tab PO Q6HR PRN #20 tablet 10/28/19 Unknown Rx 5/325] ED Physical Exam - General Limitations: No Limitations General appearance: alert, in no apparent distress - Head Head exam: Present: atraumatic, normocephalic - Eye Eye exam: Present: normal appearance - ENT ENT exam: Present: mucous membranes moist - Neck Neck exam: Present: normal inspection - Respiratory Respiratory exam: Present: normal lung sounds bilaterally. Absent: respiratory distress - Cardiovascular Cardiovascular Exam: Present: regular rate, normal rhythm. Absent: systolic murmur, diastolic murmur, rubs, gallop - GI/Abdominal GI/Abdominal exam: Present: soft, tenderness (Lower quadrant), normal bowel sounds. Absent: distended, guarding, mass, bruit - Extremities Exam Extremities exam: Present: normal inspection, normal capillary refill - Back Exam Back exam: Present: normal inspection - Neurological Exam Neurological exam: Present: alert, oriented X3 - Psychiatric Psychiatric exam: Present: normal affect, normal mood - Skin Skin exam: Present: warm, dry, intact, normal color. Absent: rash ED Course Vital Signs 04/17/20 23:43 Temperature 98.3 F Pulse Rate 69 Respiratory 18 Rate Blood Pressure 115/81 O2 Sat by Pulse 98 Oximetry ED Medical Decision Making - Lab Data Result diagrams: 04/18/20 00:40 04/18/20 00:40 - Radiology Data Radiology results: report reviewed Referring Physician:AYAZ TREJOPatient Name:CHERRY OSORIOPatient ID:[id number] of :[id number]:FemaleAccession:[id number] Date:[id number] Status:Finalized Findings [place] [id number] Cat Scan Report Signed Patient: CHERRY OSORIO MR#: [id number] : 1990 Acct:[id number] Age/Sex: 29 / F ADM Date: 04/17/20 Loc: ED Attending Dr: Ordering Physician: NINFA ROMERO Date of Service: 04/18/20 Procedure(s): CT abdomen pelvis wo con Accession Number(s): [id number] cc: NINFA ROMERO CT ABDOMEN AND PELVIS WITHOUT CONTRAST INDICATION / CLINICAL INFORMATION: Lower ABD Pain/post-surgical. TECHNIQUE: Axial CT images were obtained through the abdomen and pelvis without IV contrast. All CT scans at this location are performed using CT dose reduction for ALARA by means of automated exposure control. COMPARISON: 10/27/2019 FINDINGS: LOWER CHEST: No significant abnormality. LIVER: No significant abnormality. GALLBLADDER: Cholelithiasis. BILE DUCTS: No significant abnormality. PANCREAS: No significant abnormality. SPLEEN: No significant abnormality. ADRENALS: No significant abnormality. RIGHT KIDNEY and URETER: No significant abnormality. LEFT KIDNEY and URETER: No significant abnormality. STOMACH and SMALL BOWEL: No significant abnormality. COLON: No significant abnormality. APPENDIX: Prior appendectomy.. PERITONEUM: No free fluid. No free air. No fluid collection. LYMPH NODES: No significant adenopathy. AORTA and ARTERIES: No significant abnormality. IVC and VEINS: No significant abnormality. URINARY BLADDER: No significant abnormality. REPRODUCTIVE ORGANS: No significant abnormality. ADDITIONAL FINDINGS: None. SKELETAL SYSTEM: No significant abnormality. IMPRESSION: 1. No significant abnormality. Signer Name: Celestine Salvador MD Signed: 04/18/2020 4:27 AM Workstation Name: [id number] Transcribed By: ZAHRA Dictated By: Celestine Salvador MD Electronically Authenticated By: Celestine Salvador MD Signed Date/Time: 04/18/20426 DD/ 3 TD/TT: - Medical Decision Making This patient presents with abdominal pain of unclear etiology. A CT scan was performed to evaluate for potential causes of the abdominal pain, however, neither the clinical exam nor the CT has identified an emergent etiology for the abdominal pain. Specifically, given the benign exam, the laboratory studies, and unremarkable CT, I have a very low suspicion for appendicitis, ischemic bowel, bowel perforation, or any other life threatening disease. I have discussed with the patient the level of uncertainty with undifferentiated abdominal pain and clearly explained the need to follow-up as noted on the discharge instructions, or return to the Emergency Department immediately if the pain worsens, develops fever, persistent and uncontrollable vomiting, or for any new symptoms or co ncerns. Critical care attestation.: If time is entered above; I have spent that time in minutes in the direct care of this critically ill patient, excluding procedure time. ED Disposition Clinical Impression: Abdominal pain Disposition: DC-01 TO HOME OR SELFCARE Is pt being admited?: No Does the pt Need Aspirin: No Condition: Stable Instructions: Abdominal Pain (ED) Additional Instructions: Your CT scan was normal Referrals: IVETH BERNSTEIN MD [Primary Care Provider] - 3-5 Days [facility] [Provider Group] - 3-5 Days RENATO ELI MD [Staff Physician] - 3-5 Days
[2020-04-18 07:10] VITALS: BP 119/80
== END 2020-04-18 06:30 | disposition home or self-care (01) ==
LOC: ED 22:51
DX: R10.31 Right lower quadrant pain (principal); R10.32 Left lower quadrant pain; R11.0 Nausea; J45.909 Unspecified asthma, uncomplicated; Z90.49 Acquired absence of other specified parts of digestive tract; Z98.890 Other specified postprocedural states; Z79.899 Other long term (current) drug therapy; Z91.013 Allergy to seafood
CPT/HCPCS: 36415; 74176; 80053; 81001; 83690; 84703; 85025; 96361; 96374; 96375; 99284; J2270; J2405; J7030